=== PATIENT | male | born 1985 | race Asian ===

== ENCOUNTER 2018-08-22 23:25 | Emergency (ER) | payer OTHER ==
[2018-08-22] MEDS ORDERED: Famotidine IV* 10 MG/ML 2 ML (20 mg) IV SLOW PU ONE (23:59)
[2018-08-22] MEDS ORDERED: diPHENhydraMINE IV* 50 MG/ML 1 ml VIAL (BENADRYL) IV ONE (23:59)
[2018-08-22] MEDS ORDERED: predniSONE TAB* 20 MG PO ONE (23:59)
--- NOTE | 2018-08-23 00:10 | ED ---
Allergic Reaction/Systemic - HPI Summary HPI Summary: This patient is a 33 year old M presenting to ED with a chief complaint of swollen face since 2239 today. Patient was eating sushi and shrimp and started to notice swollen face, lips, and tongue more on the right side than left. He also notes voice change. Patient denies rash/itching anywhere else, SOB, dizziness, lightheadedness, abdominal pain, diarrhea. Patient did not take any meds [employer]. The patient rates the pain 0/10 in severity. Symptoms aggravated by nothing. Symptoms alleviated by nothing. - History of Current Complaint Chief Complaint: EDAllergicReaction Time Seen by Provider: 08/22/18 23:54 Hx Obtained From: Patient Onset/Duration: Gradual Onset, Started hours ago - 2239 on 08/22/18, Still Present Severity Currently: None Pain Intensity: 0 Pain Scale Used: 0-10 Numeric Location: Discrete @ - Facial Character: Swelling Aggravating Factor(s): Nothing Alleviating Factor(s): Nothing Associated Signs And Symptoms: Positive: Negative - rash/itching anywhere outside of face, SOB, dizziness, lightheadedness, abdominal pain, diarrhea - Allergies/Home Medications Allergies/Adverse Reactions: Allergies Allergy/AdvReac Type Severity Reaction Status Date / Time No Known Allergies Allergy Verified 08/22/18 23:28 PMH/Surg Hx/FS Hx/Imm Hx Endocrine/Hematology History: Denies: Hx Diabetes Cardiovascular History: Denies: Hx Hypercholesterolemia, Hx Hypertension - Surgical History Surgery Procedure, Year, and Place: Denies Infectious Disease History: No Infectious Disease History: Denies: Traveled Outside the [place] in Last 30 Days - Family History Known Family History: Positive: Diabetes Negative: Hypertension - Social History Alcohol Use: None Hx Substance Use: No Substance Use Type: Reports: None Hx Tobacco Use: No Smoking Status (MU): Never Smoked Tobacco Review of Systems Negative: Shortness Of Breath Negative: Abdominal Pain, Diarrhea Skin: Negative - Pruritic, Other - Swollen face, lips, tongue Negative: Rash Neurological: Negative - Dizziness, lightheadedness All Other Systems Reviewed And Are Negative: Yes Physical Exam - Summary Physical Exam Summary: Appearance: Well-appearing, Well-nourished, lying in bed comfortable Skin: mild swelling at base of face, particularly on right side. No urticaria of skin. Eyes: sclera anicteric, no conjunctival pallor ENT: no change in voice, pharnyx normal Neck: deferred Respiratory: No signs of respiratory distress Cardiovascular: Appears well perfused, pulses are nml Abdomen: deferred Musculoskeletal: Moving all 4 extremities without obvious discomfort Neurological: Awake and alert, mentation is normal, speech is fluent and appropriate Psychiatric: affect is normal, does not appear anxious or depressed Triage Information Reviewed: Yes Vital Signs On Initial Exam: Initial Vitals Temp Pulse Resp BP Pulse Ox 97.9 F 83 16 156/105 99 08/22/18 23:26 08/22/18 23:26 08/22/18 23:26 08/22/18 23:26 08/22/18 23:26 Vital Signs Reviewed: Yes Diagnostics - Vital Signs Vital Signs Temp Pulse Resp BP Pulse Ox 08/22/18 23:26 97.9 F 83 16 156/105 99 - Laboratory Lab Statement: Any lab studies that have been ordered have been reviewed, and results considered in the medical decision making process. Re-Evaluation - Re-Evaluation First Eval Re-Evaluation Time: 00:45 Change: Improved Comment: Patient reports feeling better with treatment. Patient will be discharged with dx of allergic rxn. Patient understands and agrees with his plan. Allergic Reaction Course/Dx - Course Course Of Treatment: This patient is a 33 year old M presenting to ED with a chief complaint of swollen face since 2239 today. In the ED course, patient received Benadryl, Pepcid, and Deltasone. Patient reports feeling better. Patient will be discharged with dx of allergic rxn. Patient understands and agrees with his plan. - Diagnoses Provider Diagnoses: Allergic reaction Discharge - Sign-Out/Discharge Documenting (check all that apply): Patient Departure - Discharge Patient Received Moderate/Deep Sedation with Procedure: No - Discharge Plan Condition: Good Disposition: HOME Prescriptions: EPINEPHrine [Epipen 2-Marcelino] 0.3 mg IM SEE INSTRUCTIONS PRN #1 inj PRN Reason: Allergy Symptoms Patient Education Materials: Food Allergy (ED) Referrals: [facility] [Outside] - If Needed Additional Instructions: Your reaction tonight was not too severe, and going forward can be treated with antihistamines like benadryl, claritin or zyrtec; these are available OTC. I would recommend having an epipen on hand in case of a severe reaction. Of course , avoid any exposure to shellfish in the future as that is the likely precipitant of your symptoms this evening. - Billing Disposition and Condition Condition: GOOD Disposition: Home - Attestation Statements Document Initiated by Leana: Yes Documenting Scribe: Derick [place] Provider For Whom Leana is Documenting (Include Credential): Daniel Poon MD Scribe Attestation: Derick Akhtar, scribed for Daniel Poon MD on 08/23/18 at 0420. Scribe Documentation Reviewed: Yes Provider Attestation: The documentation as recorded by the Derick ortiz accurately reflects the service I personally performed and the decisions made by me, Daniel Poon MD Status of Scribe Document: Viewed
[2018-08-23 01:17] VITALS: BP 104/64
== END 2018-08-23 01:16 | disposition home or self-care (01) ==
LOC: ED 23:25
DX: R60.0 Localized edema (principal); T78.40XA Allergy, unspecified, initial encounter; X58.XXXA Exposure to other specified factors, initial encounter
CPT/HCPCS: 96374; 96375; 99284; J1200; J7512